=== PATIENT | male | born 1965 | race Caucasian/White ===

== ENCOUNTER 2017-02-28 07:58 | Outpatient (CLI) | payer OTHER ==
--- NOTE | 2017-02-28 11:08 | MRI ---
MRI OF THE RIGHT SHOULDER WITHOUT CONTRAST: Date: 02/28/17 INDICATION: Fall at work with right shoulder pain. COMPARISON: Right shoulder radiograph dated 02/04/17. FINDINGS: There is a nondisplaced anterior and superior subchondral fracture involving the distal clavicle wit h associated Grade I sprain. There is some subchondral edema involving the acromial process. There is moderate tendinosis of the supraspinatus and infraspinatus without evidence of full thickne ss tear. Superior glenoid labrum and biceps anchor appears within normal limits. No muscular atrophy is grossly evident. No enlarged lymph nodes are evident. No definite paralabral cyst is identified. Biceps tendon is normally located. IMPRESSION: 1. Nondisplaced subchondral fracture of the distal clavicle with associated Grade I ACL sprain. 2. Moderate supraspinatus and infraspinatus tendinosis without evidence of full thickness tear. POS: [facility]
== END 2017-02-28 07:59 | disposition home or self-care (01) ==
LOC: SCSMRI 07:58
PROVIDERS: ATTEND Family Medicine
DX: M24.811 Other specific joint derangements of right shoulder, not elsewhere classified (principal); S42.034A Nondisplaced fracture of lateral end of right clavicle, initial encounter for closed fracture

== ENCOUNTER 2017-07-20 10:33 | Outpatient (CLI) | payer OTHER | END 2017-07-20 10:34 | disposition home or self-care (01) | LOC: DTY/OP 10:33 | PROVIDERS: ATTEND Surgery | DX: E11.9 Type 2 diabetes mellitus without complications (principal); I10 Essential (primary) hypertension | CPT/HCPCS: 97802 ==

== ENCOUNTER 2017-10-24 16:16 | Outpatient (CLI) | payer BC ==
--- NOTE | 2017-10-24 17:25 | RAD ---
RADIOGRAPH CHEST 2 VIEWS: HISTORY: A 52-year-old male for preoperative clearance. FINDINGS: There is no air space density, pulmonary edema, pleural effusion, pneumothorax, or cardiomegaly. IMPRESSION: No acute cardiopulmonary findings. jn [] POS: MARTHA
[2017-10-24 17:44] LABS: #Eosinphils 0.2 thou/uL (0.0-0.7); #Lymphocytes 2.3 thou/uL (1.20-3.40); #Monocytes 0.7 thou/uL (0.11-0.59); #Neutrophils 9.8 thou/uL (1.40-6.50); %Basophils 0.3 % (0.0-1.0); %Eosinophils 1.8 % (0.0-10.0); %Lymphocytes 17.7 % (21.0-51.0); %Monocytes 5.4 % (0.0-10.0); %Neutrophils 74.8 % (42.0-75.0); Hemoglobin 15.3 g/dL (14.0-18.0); Mean Corpuscular HGB CONC 33.9 g/dL (32.0-36.0); Mean Corpuscular Hemoglobin 29.7 pg (27.0-31.0); Mean Corpuscular Volume 87.6 fl (80.0-94.0); Mean Platelet Volume 7.4 fL (7.4-10.4); Platelet Count 336 thou/uL (130-400); RBC Distribution Width 12.7 % (11.5-14.5); Red Blood Cell (RBC) Count 5.16 mill/uL (4.70-6.10); White Blood Cell (WBC) Count 13.1 thou/uL (4.8-10.8)
[2017-10-24 17:46] LABS: Hemoglobin A1c 6.8 % (4.0-6.0)
[2017-10-24 18:05] LABS: ALT (SGPT) 25 U/L (8-55); AST (SGOT) 16 U/L (5-34); Albumin 4.3 g/dL (3.5-5.0); Alkaline Phosphatase 95 U/L (40-150); Anion Gap 15 mmol/L (10-20); BUN (Urea Nitrogen) 15 mg/dL (8.9-20.6); Bilirubin, Direct 0.2 mg/dL (0.1-0.3); Bilirubin, Total 0.7 mg/dL (0.2-1.2); Calc. Creatinine Clearance 0 mL/min (70-130); Calcium 9.7 mg/dL (7.8-10.44); Carbon Dioxide 25 mmol/L (22-29); Chloride 99 mmol/L (98-107); Estimated GFR-MDRD 70; Glucose 221 mg/dL (70-105); Potassium 3.3 mmol/L (3.5-5.1); Protein, Total 7.3 g/dL (6.0-8.3); Sodium 136 mmol/L (136-145)
== END 2017-10-24 16:17 | disposition home or self-care (01) ==
LOC: LABBT 16:16
PROVIDERS: ATTEND Surgery
DX: Z01.818 Encounter for other preprocedural examination (principal); E66.01 Morbid (severe) obesity due to excess calories
CPT/HCPCS: 71046; 80053; 80076; 83036; 85025; 93005; 93010

== ENCOUNTER 2017-10-24 16:30 | Inpatient (IN) | payer BC ==
[2017-10-24 17:01] VITALS: BMI 35.6
[2017-10-31] MEDS ORDERED: Heparin 5,000 UNITS/ML VIAL ONE (06:49)
[2017-10-31] MEDS ORDERED: CEFAZOLIN/Water 2 GM/20 ML SYRINGE ONE (06:49)
[2017-10-31] MEDS ORDERED: Bupivacaine/Epinephrine 0.25% 30 ML VIAL ONE ×2 (06:51)
[2017-10-31] MEDS ORDERED: Midazolam HCl 2 mg/2 ml Vial ONE (06:58)
--- NOTE | 2017-10-31 07:02 | HP ---
[facility] COMPLAINT: Morbid obesity. HISTORY: The patient is a 52-year-old male who has been overweight for many years and attempted [facility] weight loss programs without success. He is here for sleeve gastrectomy. PAST MEDICAL HISTORY: Significant for asthma, hypertension, anxiety, insomnia, diabetes, and hyperli pidemia. PAST SURGICAL HISTORY: He has had tonsils and adenoidectomy, nasal surgery, ear tubes. MEDICATIONS: Metformin, Symbicort, lisinopril, zolpidem, clonazepam, p.r.n. DuoNebs. ALLERGIES: He has an allergy to ZOLOFT. FAMILY HISTORY: Father of hypertension and diabetes. Mother has hyperlipidemia, hypertension. SOCIAL HISTORY: He is a nonsmoker. No alcohol, rare caffeine. He is . PHYSICAL EXAMINATION: VITAL SIGNS: Height 5 feet 11, weight 255, body mass index 35. GENERAL: He is a well-developed, well-nourished male in no apparent distress. HEENT: Good hair growth. No alopecia. Pupils equal, round, and reactive. Extraocular muscles inta ct. LUNGS: Clear. HEART: Regular rate and rhythm. ABDOMEN: Soft, nondistended, nontender, good bowel sounds. No hernias. EXTREMITIES: Good pulses. No pedal edema. BACK: Nontender. ASSESSMENT: Morbid obesity with comorbidities. PLAN: Laparoscopic sleeve gastrectomy. CONSENT: I have discussed the planned procedure as well as risk of bleeding, infection, injury to es ophagus, spleen, loops of bowel, need to open, leakage from staple line. He understands and gives in formed consent.
[2017-10-31] MEDS ORDERED: Fentanyl 250 MCG/5 ML VIAL ONE (07:05)
[2017-10-31] MEDS ORDERED: Albuterol Sulfate HFA (OR ONLY) ONE (07:18)
[2017-10-31] MEDS ORDERED: HYDROmorphone 2 MG/ML VIAL SLOW IVP PRN (08:27)
[2017-10-31] MEDS ORDERED: Ondansetron HCl/PF 4 MG/2 ML Vial IVP PRN ×3 (08:27→12:41)
[2017-10-31] MEDS ORDERED: Meperidine HCl/PF 25 MG/ML VIAL SLOW IVP PRN (08:27)
[2017-10-31] MEDS ORDERED: Promethazine HCl 25 MG/ML VIAL SLOW IVP PRN (08:27)
[2017-10-31] MEDS ORDERED: Promethazine HCl 25 MG/ML VIAL IM PRN ×3 (08:27→12:41)
[2017-10-31] MEDS ORDERED: Morphine Sulfate 2 MG/ML SYRINGE SLOW IVP PRN (08:27)
[2017-10-31] MEDS ORDERED: Dextrose 5% in Water 1,000 ML IV PRN (08:38)
[2017-10-31] MEDS ORDERED: Insulin Regular 300 UNITS/3 ML VIAL SC PRN (08:38)
[2017-10-31] MEDS ORDERED: diphenhydrAMINE 50 MG/ML VIAL IVP PRN (08:38)
[2017-10-31] MEDS ORDERED: Hydrocodone-Acetamin 15 ML UDCUP PO PRN (08:38)
[2017-10-31] MEDS ORDERED: Dextrose 50% Abboject 50 ML SYRINGE SLOW IVP PRN (08:38)
[2017-10-31] MEDS ORDERED: hydrALAZINE 20 MG/ML VIAL SLOW IVP PRN (08:38)
[2017-10-31] MEDS ORDERED: Enoxaparin Sodium 40 MG/0.4 ML SYRINGE SC SCH (09:00)
[2017-10-31] MEDS ORDERED: D5 1/2 NS w/20 mEq KCL 1,000 ML ONE (09:02)
--- NOTE | 2017-10-31 09:38 | OP ---
PREOPERATIVE DIAGNOSIS: Morbid obesity. SURGEON: Mitchell Guzman M.D. PROCEDURE PERFORMED: Laparoscopic sleeve gastrectomy with esophagogastroscopy. INDICATIONS: A 52-year-old male, morbidly obese, who has attempted multiple weight loss programs wit hout success. FINDINGS: A 38 Malay bougie used. PROCEDURE IN DETAIL: After informed consent was obtained, the patient was taken to the operating jose m and given general endotracheal anesthesia, placed in the supine position. The abdomen was prepped and draped in the usual fashion. Local anesthesia infiltrated subcutaneously and deep and a 12 mm in cision was performed approximately 8 inches below the xiphoid slightly to the left. Veress needle in serted. Drop test performed. A volume of 2 liters of carbon dioxide. Utilizing a bladeless 12 mm t rocar and 0 degree laparoscope, direct visual entry in the abdominal cavity was performed. Pneumoper itoneum was then created to a pressure of 15 mmHg and the patient placed in the steep reverse Trendel enburg position. Nathansen liver retractor inserted. Left lobe of liver retracted superiorly. Pylo cornelius identified. A 12 mm port placed on the right beneath it and two 12s placed left subcostal. The omentum was taken off the greater curvature 5 cm from the pylorus utilizing the LigaSure. Short krysta rics divided with the LigaSure and left crura defined with the LigaSure. A 38-Malay bougie inserted directed into the antrum. The linear 60 mm green load stapler used to divide the antrum to the boug ie, gold load along the bougie, and a series of blues through the angle of His. Intraoperative endos copy was then performed. The video endoscope inserted under direct vision and advanced into the slee ve. The staple line inspected. There was no bleeding. Staple line then tested by inflating the new stomach with pressurized air under water. There was no air leak. Stomach decompressed. Scope lester jonny. Remnant stomach removed from the abdomen through the left lateral port site. Fascia closed wit h 0 Vicryl suture and the GraNee needle. Hemostasis was assured. Trocars and retractors removed. T he skin closed with interrupted 4-0 Rapide and Dermabond applied. The patient tolerated the procedur e well and was transferred to recovery in good condition. Sponge and needle count verified correct x 2.
[2017-10-31] MEDS: 1/2 NS w/KCL 20 mEq 1,000 ML IV SCH ×2 (10:30→16:56)
[2017-10-31] MEDS: Pantoprazole 40 MG VIAL IVP SCH (10:30)
[2017-10-31] MEDS ORDERED: Zolpidem Tartrate 5 MG TAB PO PRN (12:41)
[2017-10-31] MEDS ORDERED: diphenhydrAMINE 25 MG CAP PO PRN (12:41)
[2017-10-31] MEDS ORDERED: diphenhydrAMINE 50 MG/ML VIAL IM/IV PRN (12:41)
[2017-10-31] MEDS ORDERED: Ketorolac Tromethamine 30 MG/ML VIAL IVP PRN (12:41)
[2017-10-31] MEDS ORDERED: fentaNYL Citrate/PF 2,000 MCG in Sodium Chloride 0.9% 60 ML IV PRN (12:41)
[2017-10-31] MEDS ORDERED: Naloxone HCl 0.4 mg/ml Vial IV PRN (12:41)
[2017-10-31] MEDS ORDERED: Fentanyl 100 MCG/2 ML VIAL SLOW IVP SCH (12:45)
[2017-10-31] MEDS: CEFAZOLIN/Water 2 GM/20 ML SYRINGE SLOW IVP SCH (16:53)
[2017-11-01] MEDS: CEFAZOLIN/Water 2 GM/20 ML SYRINGE SLOW IVP SCH (00:20)
[2017-11-01] MEDS: 1/2 NS w/KCL 20 mEq 1,000 ML IV SCH ×2 (01:53→12:37)
[2017-11-01 05:39] LABS: #Basophils 0.1 thou/uL (0.0-0.2); #Eosinphils 0.1 thou/uL (0.0-0.7); #Lymphocytes 1.8 thou/uL (1.20-3.40); #Monocytes 1.4 thou/uL (0.11-0.59); #Neutrophils 12.6 thou/uL (1.40-6.50); %Basophils 0.3 % (0.0-1.0); %Eosinophils 0.7 % (0.0-10.0); %Monocytes 8.8 % (0.0-10.0); %Neutrophils 79.1 % (42.0-75.0); Hemoglobin 13.7 g/dL (14.0-18.0); Mean Corpuscular Hemoglobin 29.2 pg (27.0-31.0); Mean Corpuscular Volume 88.5 fL (78.0-98.0); Mean Platelet Volume 7.6 fL (7.4-10.4); Platelet Count 292 thou/uL (130-400); RBC Distribution Width 12.7 % (11.5-14.5); Red Blood Cell (RBC) Count 4.69 mill/uL (4.70-6.10); White Blood Cell (WBC) Count 15.9 thou/uL (4.8-10.8)
[2017-11-01 05:43] LABS: Anion Gap 14 mmol/L (10-20); BUN (Urea Nitrogen) 15 mg/dL (8.9-20.6); Calc. Creatinine Clearance 156 mL/min (70-130); Calcium 9.2 mg/dL (7.8-10.44); Carbon Dioxide 22 mmol/L (22-29); Chloride 103 mmol/L (98-107); Estimated GFR-MDRD 86; Glucose 123 mg/dL (70-105); Potassium 4.5 mmol/L (3.5-5.1); Sodium 134 mmol/L (136-145)
[2017-11-01] MEDS ORDERED: Enoxaparin Sodium 40 MG/0.4 ML SYRINGE SC SCH (09:00)
[2017-11-01] MEDS ORDERED: Hydrocodone-Acetamin 15 ML UDCUP PO PRN (09:00)
[2017-11-01] MEDS: Pantoprazole 40 MG VIAL IVP SCH (09:19)
--- NOTE | 2017-11-01 09:40 | RAD ---
15 ML GASTROGRAFIN UPPER GI: Date: 11/01/17 COMPARISON: None. HISTORY: Evaluate for leak or obstruction following gastric sleeve procedure. FINDINGS: The patient ingested 15 mL of Gastrografin. The contrast media traverses the gastroesophageal junctio n and enters the postoperative stomach without delay. No evidence for leak or obstruction. IMPRESSION: No evidence for leak or obstruction following gastric sleeve procedure. POS: MARTHA
[2017-11-01 11:11] VITALS: BP 126/73; TEMP 97.8
--- NOTE | 2017-11-01 13:11 | DIS ---
DISCHARGE DIAGNOSIS: Morbid obesity. PROCEDURES DURING ADMISSION: Laparoscopic sleeve gastrectomy with esophagogastroscopy. HOSPITAL COURSE: The patient was admitted, taken to the operating room where he underwent sleeve. P ostoperatively, did well. X-ray was fine, started on liquids. He is tolerating well. He is dischar ged home on hydrocodone, Zofran, and follow up with me in 2 weeks.
[2017-11-01] MEDS ORDERED: GASTROGRAFIN 30 ML BOT ONE (13:16)
== END 2017-11-01 13:26 | disposition home or self-care (01) | DRG 621 ==
LOC: SURG A 10-31 05:54
PROVIDERS: ADMIT Surgery; ATTEND Surgery
PROC: 0DB64Z3 Excision of Stomach, Percutaneous Endoscopic Approach, Vertical (ICD-10-PCS; principal; 2017-10-31)
PROC: 0DJ08ZZ Inspection of Upper Intestinal Tract, Via Natural or Artificial Opening Endoscopic (ICD-10-PCS; 2017-10-31)
DX: E66.01 Morbid (severe) obesity due to excess calories (principal); J45.909 Unspecified asthma, uncomplicated; I10 Essential (primary) hypertension; F41.9 Anxiety disorder, unspecified; E11.9 Type 2 diabetes mellitus without complications; G47.00 Insomnia, unspecified; Z79.84 Long term (current) use of oral hypoglycemic drugs; Z88.8 Allergy status to other drugs, medicaments and biological substances; Z79.899 Other long term (current) drug therapy; Z68.35 Body mass index [BMI] 35.0-35.9, adult
CPT/HCPCS: 36415; 74241; 80048; 85025; 88307; 88312; 94760; C9113; J0131; J1644; J1650; J2250; J2405; J3010; J7050

== ENCOUNTER 2018-12-23 14:05 | Inpatient (IN) | payer BC ==
[2018-12-23] MEDS ORDERED: Aspirin Chewable 81 MG TAB ONE (14:28)
[2018-12-23 14:35] LABS: #Basophils 0.1 thou/uL (0.0-0.2); #Eosinphils 0.2 thou/uL (0.0-0.7); #Lymphocytes 1.1 thou/uL (1.20-3.40); #Monocytes 0.8 thou/uL (0.11-0.59); #Neutrophils 3.9 thou/uL (1.40-6.50); %Basophils 1.1 % (0.0-1.0); %Eosinophils 3.3 % (0.0-10.0); %Lymphocytes 18.4 % (21.0-51.0); %Monocytes 13.4 % (0.0-10.0); %Neutrophils 63.9 % (42.0-75.0); Hemoglobin 15.1 g/dL (14.0-18.0); Mean Corpuscular Hemoglobin 29.7 pg (27.0-31.0); Mean Corpuscular Volume 89.9 fL (78.0-98.0); Mean Platelet Volume 7.8 fL (7.4-10.4); Platelet Count 219 thou/uL (130-400); RBC Distribution Width 12.8 % (11.5-14.5); Red Blood Cell (RBC) Count 5.08 mill/uL (4.70-6.10); White Blood Cell (WBC) Count 6.1 thou/uL (4.8-10.8)
[2018-12-23] MEDS ORDERED: Sodium Chloride For Inhalation 0.9% 3 ML NEB ONE (14:38)
--- NOTE | 2018-12-23 14:42 | RAD ---
PA AND LATERAL CHEST: HISTORY: Cough. Shortness of breath. Chest pain. COMPARISON: 10/24/2016 FINDINGS: The heart size is normal. The lungs are well expanded without focal areas of consolidation, pneumoth oraces, or pleural effusions. No acute osseous abnormalities are seen. IMPRESSION: No acute process. POS: [facility]
[2018-12-23 14:50] LABS: ALT (SGPT) 23 U/L (8-55); AST (SGOT) 29 U/L (5-34); Alkaline Phosphatase 86 U/L (40-150); Anion Gap 16 mmol/L (10-20); BUN (Urea Nitrogen) 10 mg/dL (8.4-25.7); Bilirubin, Total 0.6 mg/dL (0.2-1.2); Calc. Creatinine Clearance 0 mL/min (70-130); Carbon Dioxide 23 mmol/L (22-29); Chloride 109 mmol/L (98-107); Estimated GFR-MDRD Greater than 90; Globulin 2.5 g/dL (2.4-3.5); Glucose 115 mg/dL (70-105); Lipase 39 U/L (8-78); Potassium 4.8 mmol/L (3.5-5.1); Protein, Total 6.5 g/dL (6.0-8.3); Sodium 143 mmol/L (136-145)
[2018-12-23 17:41] LABS: Troponin I 0.136 ng/mL (< 0.028)
[2018-12-23] MEDS ORDERED: Nitroglycerin 2% Ointment 1 INCH/1 GM Packet ONE (18:12)
[2018-12-23] MEDS ORDERED: Enoxaparin Sodium 80 MG/0.8 ML SYRINGE ONE (18:35)
[2018-12-23 20:18] VITALS: BMI 25.5
[2018-12-23 21:02] LABS: Troponin I 0.795 ng/mL (< 0.028)
[2018-12-23] MEDS ORDERED: Ondansetron PF 4 MG/2 ML Vial IVP PRN (22:32)
[2018-12-23] MEDS ORDERED: Ondansetron ODT 4 MG TAB PO PRN (22:32)
[2018-12-23] MEDS ORDERED: Mometasone/Formoterol 120 PUFF INHALER INH PRN (22:38)
[2018-12-23] MEDS ORDERED: Atorvastatin Calcium 40 MG TAB PO SCH (22:45)
[2018-12-23] MEDS: Nitroglycerin 2% Ointment 1 INCH/1 GM Packet TOP SCH (23:15)
[2018-12-23] MEDS: Acetaminophen 325 MG TAB PO PRN (23:15)
--- NOTE | 2018-12-24 00:47 | HP ---
CHIEF COMPLAINT: Chest pain. HISTORY OF PRESENT ILLNESS: The patient is a pleasant 53-year-old male with past medical history significant for hypertension and type 2 diabetes mellitus, no longer requiring medical therapy, status post gastric sleeve procedure and 87-pound weight loss, who presented to the hospital with complaints of acute onset chest pain. The patient states that he was watching golf on TV when his symptoms began. The patient describes the pain as stabbing and severe. He had radiation up into the neck. Associated symptoms included shortness of breath, nausea, and diaphoresis. The patient did drive himself to the emergency department from [place], but was having severe symptoms along the way. On arrival to the emergency department, EKG was performed, which showed normal sinus rhythm, no ischemic ST or T-wave changes noted. The patient's initial troponin was negative, but his next troponin was indeterminate at 0.136. The patient states that his chest pain was relieved with nitroglycerin paste. The patient remained chest pain free since his nitroglycerin was placed and he was transferred to our facility for observation. His third troponin received at our facility was positive with a level of 0.795. As mentioned, the patient is resting comfortably. He has had no further chest pain since application of nitroglycerin paste. He was given aspirin and Lovenox at the [facility] ER. REVIEW OF SYSTEMS: 12-point review of systems was performed. The patient does report a history of asthma and has had a cough for the past 2 days productive of clear sputum. No fever or chills. Otherwise, his review of systems is negative. PAST MEDICAL HISTORY: As mentioned, type 2 diabetes and hypertension, no longer on medication since his weight loss surgery. He also has a history of hyperlipidemia and asthma. SURGICAL HISTORY: Sleeve gastrectomy performed by Dr. Guzman in October 2017. PSYCHIATRIC HISTORY: Anxiety. FAMILY HISTORY: His father has hypertension and his mother from cancer. No coronary artery disease that runs in his family that he knows of. SOCIAL HISTORY: The patient lives in [place] with his . He has 2 children and grandchildren as well. 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 He has never smoked and drinks alcohol occasionally. No illicit drug use. ALLERGIES: PENICILLINS. HOME MEDICATIONS: 1. Symbicort 160/4.5, one puff inhaled b.i.d. 2. Clonazepam 0.5 mg daily. 3. DuoNeb 3 mL neb q.i.d. p.r.n. wheezing and shortness of breath. 4. Ambien 10 mg p.o. at bedtime. PHYSICAL EXAMINATION: VITAL SIGNS: Blood pressure 104/67, pulse is 88, O2 saturation is 94% on room air, respirations 20, temperature 97.6. GENERAL: The patient is a well-appearing male who appears his stated age, resting comfortably in bed, in no acute distress. HEENT: Head is atraumatic and normocephalic. Mucous membranes are moist. NECK: Trachea is midline. No obvious JVD. No carotid bruits. CV: S1 and S2. Regular rate and rhythm. No appreciable murmurs, rubs, or gallops. LUNGS: Regular respiratory rate and pattern, occasional expiratory wheeze noted in both lung cervantes. ABDOMEN: Positive bowel sounds. Soft, nontender. EXTREMITIES: No edema. Warm and well perfused. SKIN: Warm and dry. NEUROLOGIC: Cranial nerves 2 through 12 are grossly intact. The patient is nonfocal. LABORATORY DATA: White blood cell count 6.1, hemoglobin 15.1, platelet count is 219. D-dimer negative at 0.33. Sodium 143, potassium 4.8, chloride 109, carbon dioxide 23, anion gap 16, BUN 10, creatinine 0.83, glucose 115, calcium 9.0, AST 20, ALT 23, alkaline phosphatase 86. Troponin 0.010, 0.136, and 0.795 respectively. Lipase was 39. ASSESSMENT: 1. Acute coronary syndrome/non ST-elevation myocardial infarction. 2. History of hypertension and type 2 diabetes mellitus, no longer requiring medication after weight loss. 3. History of gastric sleeve. 4. Asthma. 5. Anxiety. PLAN: Dr. Avila has been called from the [facility] ER and will see the patient tomorrow. For now, we will continue aspirin and Lovenox. I will add statin and KELLEE inhibitor. The patient is chest pain free, and unfortunately, I do hear audible wheezes, so I will hold off on beta-temo for now. We will obtain one more troponin with reflex CK-MB in the morning. I will also obtain a fasting lipid panel along with an A1c. Continue p.r.n. nitrates. Further recommendations based on hospital course. Job ID: [id number] [facility]
[2018-12-24] MEDS ORDERED: Nitroglycerin 0.4 MG TAB (25 Tab Bottle) ONE (01:55)
[2018-12-24 05:25] LABS: #Basophils 0.1 thou/uL (0.0-0.2); #Eosinphils 0.3 thou/uL (0.0-0.7); #Lymphocytes 1.6 thou/uL (1.20-3.40); #Monocytes 0.7 thou/uL (0.11-0.59); #Neutrophils 2.5 thou/uL (1.40-6.50); %Basophils 1.3 % (0.0-1.0); %Eosinophils 4.9 % (0.0-10.0); %Lymphocytes 31.8 % (21.0-51.0); %Monocytes 13.4 % (0.0-10.0); %Neutrophils 48.6 % (42.0-75.0); Hemoglobin 14.1 g/dL (14.0-18.0); Mean Corpuscular HGB CONC 33.1 g/dL (32.0-36.0); Mean Corpuscular Hemoglobin 30.2 pg (27.0-31.0); Mean Corpuscular Volume 91.3 fL (78.0-98.0); Mean Platelet Volume 7.9 fL (7.4-10.4); Platelet Count 216 thou/uL (130-400); RBC Distribution Width 12.9 % (11.5-14.5); Red Blood Cell (RBC) Count 4.67 mill/uL (4.70-6.10); White Blood Cell (WBC) Count 5.2 thou/uL (4.8-10.8)
[2018-12-24 05:41] LABS: Hemoglobin A1c 5.6 % (4.0-6.0)
[2018-12-24 05:53] LABS: Anion Gap 11 mmol/L (10-20); BUN (Urea Nitrogen) 9 mg/dL (8.4-25.7); Calc. Creatinine Clearance 127 mL/min (70-130); Calcium 8.7 mg/dL (7.8-10.44); Carbon Dioxide 23 mmol/L (22-29); Cardiac Risk 3.5 (Less than 4.5); Chloride 108 mmol/L (98-107); Cholesterol 118 mg/dl (< 200 Desired); Estimated GFR-MDRD Greater than 90; Glucose 100 mg/dL (70-105); HDL Cholesterol 34 mg/dL (>60 Neg Risk); LDL Cholesterol, Calculated 68 mg/dL; Potassium 3.8 mmol/L (3.5-5.1); Sodium 138 mmol/L (136-145); Triglycerides 78 mg/dL (Less than 150)
[2018-12-24] MEDS: Nitroglycerin 2% Ointment 1 INCH/1 GM Packet TOP SCH (05:58)
[2018-12-24 06:23] LABS: CKMB 4.8 ng/mL (0-6.6)
[2018-12-24] MEDS: Aspirin 81 mg Enteric Coated Tablet PO SCH (08:04)
[2018-12-24] MEDS: Famotidine 20 MG TAB PO SCH ×2 (08:04→20:43)
[2018-12-24] MEDS: Lisinopril 2.5 MG TAB PO SCH ×2 (08:04→08:06)
[2018-12-24] MEDS: Acetaminophen 325 MG TAB PO PRN (08:04)
[2018-12-24] MEDS: Enoxaparin Sodium 80 MG/0.8 ML SYRINGE SC SCH ×2 (08:08→20:42)
[2018-12-24 11:47] LABS: CKMB 4.7 ng/mL (0-6.6)
[2018-12-24] MEDS: clonazePAM 0.5 MG TAB PO SCH (12:50)
--- NOTE | 2018-12-24 15:56 | PDOC.HOSPP ---
- Subjective Subjective: Seen and examined. NPO this AM. Mildly elevated troponin, downtrending. Denies chest pain currently. Patient has been wheezing and his asthma has not been controlled, normally he takes Symbicort. No other acute complaints at this time. - Objective Vital Signs & Weight: Vital Signs (12 hours) Temp Pulse Resp BP Pulse Ox 12/24/18 15:31 97.9 F 80 18 112/70 94 L 12/24/18 12:02 77 12 12/24/18 11:39 97.9 F 77 15 120/71 94 L 12/24/18 08:04 94 L 12/24/18 07:25 97.5 F L 67 18 102/66 94 L 12/24/18 04:00 97.8 F 69 20 106/58 L 94 L Weight Weight 181 lb 8 oz I&O: 12/23/18 12/24/18 12/25/18 06:59 06:59 06:59 Intake Total 200 Output Total 300 Balance -100 Result Diagrams: 12/24/18 05:10 12/24/18 05:10 Radiology Reviewed by me: Yes (Chest x ray) ROS - Medication Medications: Active Medications Generic Name Dose Route Start Last Admin Trade Name Freq PRN Reason Stop Dose Admin Acetaminophen 650 mg 12/23/18 22:32 12/24/18 08:04 Tylenol PO 650 mg Q4H PRN Administration Headache/Fever/Mild Pain (1-3) Albuterol/Ipratropium 3 ml 12/23/18 22:38 12/24/18 02:06 Duoneb NEB 3 ml QIDPRN PRN Administration SOB &/or Wheezing Aspirin 81 mg 12/24/18 09:00 12/24/18 08:04 Ecotrin PO 81 mg DAILY STACIA Administration Clonazepam 0.5 mg 12/24/18 12:00 12/24/18 12:50 Klonopin PO 0.5 mg 1200 STACIA Administration Enoxaparin Sodium 80 mg 12/24/18 09:00 12/24/18 08:08 Lovenox SC Not Given 0900,2100 STACIA Famotidine 20 mg 12/24/18 09:00 12/24/18 08:04 Pepcid PO 20 mg BID STACIA Administration Lisinopril 2.5 mg 12/24/18 09:00 12/24/18 08:06 Zestril PO Not Given DAILY STACIA Mometasone Furoate/Formoterol Fumar 1 puff 12/23/18 22:38 12/24/18 12:02 Dulera 200 Mcg/5 Mcg Inhaler INH 1 puff BIDPRN PRN Administration SOB &/or Wheezing - Exam NAD, awake alert Eye: PERRL Eye - other findings: EOMI ENT: normocephalic atraumatic, moist mucosa Neck: supple, symmetric, no JVD Heart: RRR, no murmur, no gallops Respiratory: no rales, no ronchi, wheezes Respiratory - other findings: Diffuse wheezing in all lung cervnates Gastrointestinal: soft, non-tender, non-distended, normal bowel sounds Extremities: no edema Neurological: CN's grossly intact, normal sensation to touch, no weakness, no focal deficits Musculoskeletal: normal strength Psychiatric: A&O x 3 Hosp A/P - Plan Plan: Mildly elevated troponin and shortness of breath/ chest discomfort - however appears to be Acute asthma exacerbation Start Solu medrol 40mg IV now Start Duonebs Q4 hours Restart home med Symbicort Echo No longer diabetic with A1C 5.6 S/p gastric with nearly 90lbs of weight loss Never smoker GI and DVT PPX
[2018-12-24] MEDS: Budesonide 0.5 MG/2 ML NEB INH SCH (19:05)
[2018-12-24] MEDS: Communication Order-Pharmacy FS SCH (20:40)
[2018-12-24] MEDS ORDERED: Atorvastatin Calcium 40 MG TAB PO SCH (21:00)
[2018-12-24] MEDS: Zolpidem Tartrate 5 MG TAB PO SCH (22:07)
--- NOTE | 2018-12-24 23:34 | CON ---
DATE OF CONSULTATION: HISTORY OF PRESENT ILLNESS: Neo Akins is a pleasant 53-year-old white male without previous cardiac history. He does have history of gastric sleeve placed in October 2017 and since then has lost 87 pounds. He states he did have high cholesterol previously as well as diabetes; however, after his weight loss, his cholesterol improved and also he no longer required any type of diabetic medication. In looking back over the last 4 years, his highest LDL was 114. He was doing well until yesterday when he was sitting, watching golf on TV. He then began to have left-sided sharp stabbing chest pain associated with shortness of breath, diaphoresis, and nausea. He lives in [place] approximately 40 miles away and he drove himself in and he thought he would pass out while driving. In the emergency room, EKG did not show any acute changes, but his pain was resolving. Nitroglycerin topically was placed and he states that within a few minutes, his pain completely resolved. Total duration of the pain was approximately 50 minutes. He has had a slight peaking in his troponin I and Cardiology consultation is requested. PAST MEDICAL HISTORY: Hypertension, diabetes and hypercholesterolemia; however , he has not required any medical therapy for any of those illnesses after losing 87 pounds. He does have asthma since childhood. PAST SURGICAL HISTORY: Gastric sleeve, tonsillectomy, nasal surgery. MEDICATIONS: 1. Symbicort one puff b.i.d. p.r.n. 2. Clonazepam 0.5 mg at noon. 3. Zolpidem 10 mg at bedtime. 4. DuoNebs neb treatments q.i.d. p.r.n. ALLERGIES: PENICILLIN. SOCIAL HISTORY: He does not smoke. He occasionally drinks alcohol. 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 FAMILY HISTORY: Negative for coronary artery disease. REVIEW OF SYSTEMS: Unremarkable. PHYSICAL EXAMINATION: VITAL SIGNS: Blood pressure 112/70, pulse of 80. HEENT: PERRL. NECK: Supple. CHEST: Revealed bilateral wheezing. CARDIAC: S1 and S2 normal without any S3, S4, or murmurs. ABDOMEN: Normal bowel sounds without tenderness or organomegaly. EXTREMITIES: Revealed no clubbing, cyanosis, or edema. NEUROLOGIC: Grossly intact. SKIN: Warm and dry. LABORATORY DATA: EKG x3 are normal. Troponin I initially was less than 0.010 and then went up to 1.025. Sodium 138, potassium 3.8, chloride 108, carbon dioxide 23, BUN 9, creatinine 0.81. Hemoglobin A1c is normal at 5.6. Cholesterol 118, triglycerides 78, HDL 34, LDL 68. CBC is unremarkable. IMPRESSION: 1. [id number] myocardial infarction. 2. Hypercholesterolemia with LDL as high as 114 in the past; however, after weight loss, he has lowered his cholesterol. 3. History of hypertension, also resolved after weight loss. 4. History of diabetes, which also resolved after weight loss. He currently has a normal hemoglobin A1c. 5. Asthma. RECOMMENDATIONS: With Mr. Akins's non STEMI, it was recommended he undergo cardiac catheterization. Risks of this were discussed including , myocardial infarction, dye reaction, vascular injury, CVA, transfusion, limb loss, renal loss, etc. Risks of intervention with stent placement and PTCA were discussed including , myocardial infarction, emergent CABG, restenosis, stent thrombosis, vessel perforation, etc. We discussed bare metal stent versus drug-eluting stents. He has never had any gastrointestinal bleeding and he does not have any upcoming surgery. He has never had a stroke and overall it is recommended that a drug-eluting stent be placed if needed. [facility] [id number] [facility]
[2018-12-25] MEDS ORDERED: Sodium Chloride 0.9% 1,000 ML IV SCH ×2 (06:00→12:13)
[2018-12-25] MEDS: Aspirin 81 mg Enteric Coated Tablet PO SCH ×2 (06:28→06:29)
[2018-12-25] MEDS: Famotidine 20 MG TAB PO SCH ×2 (06:29→20:33)
[2018-12-25] MEDS: Lisinopril 2.5 MG TAB PO SCH (06:29)
[2018-12-25] MEDS: methylPREDNISolone Sod Succ 40 MG VIAL IVP SCH (06:30)
[2018-12-25] MEDS: Budesonide 0.5 MG/2 ML NEB INH SCH ×2 (06:56→19:13)
[2018-12-25] MEDS ORDERED: Lidocaine 1% (PF) 30 ML VIAL ONE ×2 (07:23→09:04)
[2018-12-25] MEDS ORDERED: Heparin 10,000 UNITS/1 ML VIAL ONE ×2 (07:23→09:15)
[2018-12-25] MEDS ORDERED: Midazolam HCl 2 mg/2 ml Vial ONE (11:32)
[2018-12-25] MEDS ORDERED: Fentanyl 100 MCG/2 ML VIAL ONE (11:32)
--- NOTE | 2018-12-25 11:45 | PDOC.HOSPP ---
- Subjective Subjective: Seen and examined. Breathing much better, no longer with wheezing, shortness of breath, or cough. NPO for cath this AM. No chest pain this AM. Patient is hungry. - Objective Vital Signs & Weight: Vital Signs (12 hours) Temp Pulse Resp BP Pulse Ox 12/25/18 07:07 98.0 F 68 18 139/67 98 12/25/18 06:55 67 16 96 12/25/18 06:29 78 12/25/18 04:18 78 16 12/25/18 04:00 98.5 F 73 18 133/84 95 Weight Weight 181 lb 11.2 oz I&O: 12/24/18 12/25/18 12/26/18 06:59 06:59 06:59 Intake Total 200 1120 Output Total 300 1450 Balance -100 -330 Result Diagrams: 12/24/18 05:10 12/24/18 05:10 ROS - Medication Medications: Active Medications Generic Name Dose Route Start Last Admin Trade Name Freq PRN Reason Stop Dose Admin Acetaminophen 650 mg 12/23/18 22:32 12/24/18 08:04 Tylenol PO 650 mg Q4H PRN Administration Headache/Fever/Mild Pain (1-3) Albuterol/Ipratropium 3 ml 12/23/18 22:38 12/24/18 02:06 Duoneb NEB 3 ml QIDPRN PRN Administration SOB &/or Wheezing Albuterol/Ipratropium 3 ml 12/24/18 19:00 12/25/18 10:05 Duoneb NEB Not Given [id number] STACIA Albuterol/Ipratropium 3 ml 12/24/18 19:00 12/25/18 10:06 Duoneb NEB Not Given [id number] STACIA Aspirin 81 mg 12/24/18 09:00 12/25/18 06:29 Ecotrin PO 81 mg DAILY STACIA Administration Atorvastatin Calcium 40 mg 12/24/18 21:00 12/24/18 20:43 Lipitor PO 40 mg HS STACIA Administration Budesonide 0.5 mg 12/24/18 18:30 12/25/18 06:56 Pulmicort Neb Solution INH 0.5 mg BID-RT STACIA Administration Clonazepam 0.5 mg 12/24/18 12:00 12/24/18 12:50 Klonopin PO 0.5 mg 1200 STACIA Administration Famotidine 20 mg 12/24/18 09:00 12/25/18 06:29 Pepcid PO 20 mg BID STACIA Administration Sodium Chloride 1,000 mls @ 100 mls/hr 12/25/18 06:00 12/25/18 06:25 Normal Saline 0.9% IV 1,000 mls .Q10H STACIA Administration Lisinopril 2.5 mg 12/24/18 09:00 12/25/18 06:29 Zestril PO 2.5 mg DAILY STACIA Administration Methylprednisolone Sodium Succinate 40 mg 12/25/18 09:00 12/25/18 06:30 Solu-Medrol IVP 40 mg DAILY STACIA Administration Miscellaneous Information 0 each 12/24/18 18:00 12/24/18 20:40 Communication Order-Pharmacy FS Not Given 1800 STACIA Mometasone Furoate/Formoterol Fumar 1 puff 12/23/18 22:38 12/24/18 12:02 Dulera 200 Mcg/5 Mcg Inhaler INH 1 puff BIDPRN PRN Administration SOB &/or Wheezing Zolpidem Tartrate 10 mg 12/24/18 21:00 12/24/18 22:07 Ambien PO 10 mg HS STACIA Administration - Exam NAD, awake alert Eye: PERRL, anicteric sclera ENT: moist mucosa Neck: supple, no JVD Heart: RRR, no murmur, no gallops, no rubs Respiratory: no wheezes, no ronchi, normal chest expansion, wheezes (Only faint wheezing now audible, much improved.) Gastrointestinal: soft, non-tender, non-distended, normal bowel sounds, no guarding, no rigidity Extremities: no edema Neurological: CN's grossly intact, no weakness, no focal deficits Musculoskeletal: normal tone, normal strength Psychiatric: normal affect, A&O x 3 Hosp A/P - Plan Plan: NSTEMI - plan for cath this AM Morphine, oxygen, ASA, nitrates, Lovenox Further plan of care after cath Echo Asthma exacerbation improved Continue Solu medrol 40mg IV Duonebs Q4 hours Restart home med Symbicort No longer diabetic with A1C 5.6 S/p gastric with nearly 90lbs of weight loss Never smoker GI and DVT PPX
[2018-12-25] MEDS ORDERED: Protamine Sulfate 50 MG/5 ML VIAL ONE (11:53)
[2018-12-25] MEDS ORDERED: Acetaminophen/Codeine 30-300mg Tablet PO PRN ×2 (12:12)
[2018-12-25] MEDS ORDERED: Nitroglycerin 0.4 MG TAB (25 Tab Bottle) SL PRN (12:12)
[2018-12-25] MEDS ORDERED: Sodium Chloride 0.9% 200 ML IV PRN (12:12)
[2018-12-25] MEDS: clonazePAM 0.5 MG TAB PO SCH (12:50)
[2018-12-25] MEDS: Communication Order-Pharmacy FS SCH (18:20)
[2018-12-25] MEDS ORDERED: Atorvastatin Calcium 10 MG TAB PO SCH (21:00)
[2018-12-25] MEDS: Zolpidem Tartrate 5 MG TAB PO SCH (23:21)
[2018-12-26 05:59] LABS: Anion Gap 11 mmol/L (10-20); BUN (Urea Nitrogen) 13 mg/dL (8.4-25.7); Calc. Creatinine Clearance 119 mL/min (70-130); Calcium 9.1 mg/dL (7.8-10.44); Carbon Dioxide 24 mmol/L (22-29); Chloride 107 mmol/L (98-107); Estimated GFR-MDRD Greater than 90; Glucose 111 mg/dL (70-105); Potassium 3.7 mmol/L (3.5-5.1); Sodium 138 mmol/L (136-145)
[2018-12-26] MEDS: Budesonide 0.5 MG/2 ML NEB INH SCH (07:34)
[2018-12-26 07:46] VITALS: BP 116/73; TEMP 99.7
[2018-12-26] MEDS: Aspirin 81 mg Enteric Coated Tablet PO SCH (08:35)
[2018-12-26] MEDS: Famotidine 20 MG TAB PO SCH (08:35)
[2018-12-26] MEDS: methylPREDNISolone Sod Succ 40 MG VIAL IVP SCH (08:35)
--- NOTE | 2018-12-27 03:21 | DIS ---
DATE OF ADMISSION: 12/23/2018 DATE OF DISCHARGE: 12/26/2018 REASON FOR HOSPITALIZATION: Chest pain. SIGNIFICANT FINDINGS: The patient with Prinzmetal angina and coronary vasospasms. The patient also diagnosed with acute asthma exacerbation. PROCEDURES PERFORMED AND TREATMENTS RENDERED: The patient went for cardiac catheterization on 12/25/2018, please see full operative report for details. Cardiac regimen adjusted appropriately by vocational training instructor. CONDITION ON DISCHARGE: Stable. SPECIFIC INSTRUCTIONS FOR THE PATIENT: 1. The patient is to follow up with primary care physician in the next 5 to 7 days. 2. The patient is recommended follow up with vocational training instructor in the next 1 to 2 weeks. 3. The patient is recommended to take all medications as outlined, to be re-evaluated by primary care physician and Cardiology in the outpatient setting. 4. The patient is recommended to complete a full course of medications for acute asthma exacerbation. 5. The patient is recommended explicitly to return to acute care hospital immediately if signs or symptoms return, worsen, or any other new symptoms occur. HISTORY OF PRESENT ILLNESS: Mr. Akins is a very pleasant 53-year-old gentleman who presented to [facility] on 12/23/2018, with chest pain. The patient with up trending cardiac enzymes, Cardiology was consulted, please see full consultation and progress notes for details. Cardiology recommending cardiac catheterization which was performed on 12/25/2018, please see full operative report for details. The patient tolerated the procedure well without intraoperative complications. The patient diagnosed with coronary vasospasms and presumed Prinzmetal angina. The patient was started on calcium channel temo for improvement of these symptoms. The patient is placed on aspirin and statin therapy by Cardiology. The patient is also with acute asthma exacerbation over the past week or so with worsening congestion. The patient is placed on medications for acute asthma exacerbation with good improvement of symptoms. The patient was transitioned to oral regimen of steroids, antibiotics, and inhaled small volume nebulizers scheduled and as needed. The patient was recommended to follow up with all specialists and primary care physician as directed. The patient is recommended to take all medications as directed. The patient is recommended to return to acute care hospital immediately if signs or symptoms return, worsen, or any other new symptoms occur. Greater than 35 minutes spent coordinating the care and discharge process. Job ID: [id number]
== END 2018-12-26 09:01 | disposition home or self-care (01) | DRG 287 ==
LOC: SCSER 14:05 → 2SW 18:32 → OBSVTOIN 18:32 → SCSER 19:47 → 2NO 23:28
PROVIDERS: ADMIT Internal Medicine; ATTEND Internal Medicine
PROC: 4A023N7 Measurement of Cardiac Sampling and Pressure, Left Heart, Percutaneous Approach (ICD-10-PCS; principal; 2018-12-25)
PROC: B2151ZZ Fluoroscopy of Left Heart using Low Osmolar Contrast (ICD-10-PCS; 2018-12-25)
PROC: B2111ZZ Fluoroscopy of Multiple Coronary Arteries using Low Osmolar Contrast (ICD-10-PCS; 2018-12-25)
DX: I20.1 Angina pectoris with documented spasm (principal); J45.901 Unspecified asthma with (acute) exacerbation; E78.00 Pure hypercholesterolemia, unspecified; E11.9 Type 2 diabetes mellitus without complications; I10 Essential (primary) hypertension; F41.9 Anxiety disorder, unspecified; Z88.0 Allergy status to penicillin; Z79.51 Long term (current) use of inhaled steroids; Z79.899 Other long term (current) drug therapy; Z93.1 Gastrostomy status
CPT/HCPCS: 36415; 71046; 80048; 80053; 80061; 82553; 83036; 83690; 84484; 85025; 85347; 85379; 93005; 93458; 94640; 94664; 94760; 96372; 99152; C1769; J1644; J1650; J2001; J2250; J2720; J2920; J3010; J7620; J7626

== ENCOUNTER 2021-09-18 09:18 | Outpatient (CLI) | payer BC ==
[2021-09-18] MEDS ORDERED: Iopamidol-370 76% 500 ML 1 ML ONE (09:49)
== END 2021-09-18 09:19 | disposition home or self-care (01) ==
LOC: BICCT 09:18
PROVIDERS: ATTEND Family Medicine
DX: R22.1 Localized swelling, mass and lump, neck (principal)
CPT/HCPCS: 70492; 82565; Q9967